=== PATIENT | male | born 1975 | race Caucasian/White ===

== ENCOUNTER 2016-10-31 15:07 | Emergency (ER) | payer BC ==
[~2016-10-31] VITALS: Ht 180.3 cm; Wt 70.3 kg
[2016-10-31 15:20] VITALS: BP 129/68
[2016-10-31] MEDS ORDERED: HYDROcodone/APAP 5/325MG 1 TAB TABLET PO ONE (15:30)
[2016-10-31] MEDS ORDERED: HYDR-971 PO (15:48)
[2016-10-31] MEDS ORDERED: DOXY100C2 PO (15:48)
--- NOTE | 2016-10-31 15:48 | PHYS DOC ---
Past Medical History Past Medical History: No Pertinent History Past Surgical History: No Surgical History Adult General Chief Complaint Chief Complaint: LOWER EXT PAIN HPI HPI Patient is a 41 year old female presents to the emergency department with a 1 day history of nadia area to the right posterior hip. Patient denies drainage and discharge from the site. He states the area is tender. Patient is unsure when his last tetanus immunization. Denies fever, chills, nausea and vomiting. Review of Systems Review of Systems Constitutional: Denies fever or chills [] Eyes: Denies change in visual acuity, redness, or eye pain [] HENT: Denies nasal congestion or sore throat [] Respiratory: Denies cough or shortness of breath [] Cardiovascular: No additional information not addressed in HPI [] GI: Denies abdominal pain, nausea, vomiting, bloody stools or diarrhea [] : Denies dysuria or hematuria [] Musculoskeletal: Denies back pain or joint pain [] Integument: Denies rash or skin lesions. Patient with redness, and tenderness to the posterior right thigh. Neurologic: Denies headache, focal weakness or sensory changes [] Endocrine: Denies polyuria or polydipsia [] Physical Exam Physical Exam Constitutional: Well developed, well nourished, no acute distress, non-toxic appearance. [] HENT: Normocephalic, atraumatic, bilateral external ears normal, oropharynx moist, no oral exudates, nose normal. [] Eyes: PERRLA, EOMI, conjunctiva normal, no discharge. [] Neck: Normal range of motion, no tenderness, supple, no stridor. [] Cardiovascular:Heart rate regular rhythm, no murmur [] Lungs & Thorax: Bilateral breath sounds clear to auscultation [] Skin: Warm, dry, no erythema, no rash. Patient with redness size of softball, tenderness no induration noted. Patient with center appearing dark in color. Back: No tenderness Extremities: No tenderness, no cyanosis, no clubbing, ROM intact, no edema. [] Neurologic: Alert and oriented X 3, normal motor function, normal sensory function, no focal deficits noted. [] Psychologic: Affect normal, judgement normal, mood normal. [] EKG EKG [] Radiology/Procedures Radiology/Procedures [] Course & Med Decision Making Course & Med Decision Making Pertinent Labs and Imaging studies reviewed. (See chart for details) Patient will be updated with a tetanus immunization. He will be placed on doxy, and norco. He was instructed that norco will cause drowsiness do not take if you need to be alert and oriented. Patient was instructed to use warm moist packs on the area 4-5 times a day. Patient was instructed to followup with surgery in 3-5 days. Patient agrees with discharge instructions, treatment regimen and followup recommendations. Patient will be discharged home in stable condition. Signs and symptoms to return to emergency department has been provided. All questions and concerns have been answered at patients bedside. [] Dragon Disclaimer Dragon Disclaimer This electronic medical record was generated, in whole or in part, using a voice recognition dictation system. Departure Departure Impression: Primary Impression: Cellulitis and abscess of leg Disposition: HOME, SELF-CARE Condition: STABLE Patient Instructions: Cellulitis, [id number] Additional Instructions: Activity as tolerated Medications as prescribed Tenino will cause drowsiness do not take if you need to be alert and oriented Warm moist packs to the area 4-5 times a day Followup with a surgeon or primary care provider in 3-5 days Return to emergency department as needed for signs and symptoms that become worse. Scripts Hydrocodone/Apap 5-325 (NORCO 5-325 TABLET) 1 Each Tablet 1 TAB PO PRN Q6HRS Y for PAIN, #20 TAB 0 Refills Prov: PAVAN RIOS APRN 10/31/16 Doxycycline Hyclate (DOXYCYCLINE HYCLATE) 100 Mg Capsule 1 CAP PO BID, #20 CAP Prov: PAVAN RIOS APRN 10/31/16 PAVAN RIOS APRN Oct 31, 2016 15:48
[2016-10-31] MEDS: DIPHTH,PERTUSS(ACELL),TET TOX 0.5 ML DISP.SYRIN. VAX IM ONE ×2 (16:03→16:14)
== END 2016-10-31 16:16 | disposition home or self-care (01) ==
LOC: ER 15:07
DX: L03.115 Cellulitis of right lower limb (principal)
CPT/HCPCS: 90471; 90715; 99284-25